=== PATIENT | female | born 1935 | race African-American/Black ===

== ENCOUNTER 2020-05-19 09:34 | Inpatient (IN) | payer MEDICARE, MEDICAID ==
[2020-05-19] MEDS ORDERED: cefTRIAXone\\ROCEPHIN 2 GM VIAL ONE (14:13)
[2020-05-19] MEDS ORDERED: Azithromycin 500 MG VIAL ONE (14:13)
[2020-05-19] MEDS ORDERED: Aspirin Chewable 81 MG TAB ONE (14:13)
[2020-05-19 14:14] LABS: SARS-CoV-2 NAA Rapid Test DETECTED (NotDetected)
[2020-05-19 15:47] LABS: Troponin I 0.043 ng/mL (< 0.028)
[2020-05-19] MEDS ORDERED: Senokot S 8.6-50 MG TAB PO PRN (17:28)
[2020-05-19] MEDS ORDERED: Bisacodyl 5 MG TAB PO PRN (17:28)
[2020-05-19 18:14] LABS: Troponin I 0.044 ng/mL (< 0.028)
[2020-05-19] MEDS ORDERED: hydrALAZINE 20 MG/ML VIAL SLOW IVP PRN (18:18)
--- NOTE | 2020-05-19 18:25 | PDOC.EVN ---
Event Note - Event Note Event Note: spoke with pt's daughter who is the POA who states that pt does not have dementia. Pt has had a poor appetite for the past week and this has worsen in the last few days. Pt lives another daughter where she could have been exposed. will start her on ppn. Pt at baseline is able to walk and do her ADL's. code status discussed she wants her mother to be full code.
[2020-05-19] MEDS: Amlodipine 10 MG TAB PO SCH (20:55)
[2020-05-19] MEDS: Enoxaparin Sodium 40 MG/0.4 ML SYRINGE SC SCH (20:55)
[2020-05-19] MEDS: D5W-AA 4.25% with LYTES 1,000 ML BAG IV SCH (21:25)
[2020-05-19 23:18] VITALS: BMI 16.1
--- NOTE | 2020-05-20 00:31 | HP ---
CHIEF COMPLAINT: Generalized weakness and no appetite. HISTORY OF PRESENT ILLNESS: The patient is an 85-year-old female with history of dementia who was sent initially to [facility] for evaluation for COVID rule out. All the information is from the records. The patient is unable to tell me any information. I called the family multiple times. The family has not returned the calls. The patient apparently was brought in for possible failure to thrive and also for pancytopenia that is what I was told. The patient was awake and alert only x1. ER also tried to call the daughter and granddaughter with no success. Unknown when was the last oral intake. The patient is unable to tell me, if she has had any diarrhea. However, she currently denies any pain. Currently denies any shortness of breath. She just states that she is sleepy. PAST MEDICAL HISTORY: She has hypertension, dementia. SURGICAL HISTORY: Unable to obtain. REVIEW OF SYSTEMS: The patient currently is unable to tell me anything specific. The patient is demented. ALLERGIES: PER RECORDS NO KNOWN DRUG ALLERGIES. MEDICATIONS: Unknown. PHYSICAL EXAMINATION: VITAL SIGNS: Temperature of 98.1, 20, 68, 161/75. GENERAL: She is awake, alert, and oriented x1. CV: S1, S2 present. No murmurs, rubs or gallops. LUNGS: Clear to auscultation. No rhonchi or wheezes noted. ABDOMEN: Soft, nontender. Bowel sounds are present x2. EXTREMITIES: No edema. Pedal pulses are present x2. NEUROVASCULAR: There are no focal deficits noted. HEENT: The patient appears cachectic with some temporal wasting. LABORATORY RESULTS: Troponin of 0.043. WBCs of 1.8, hemoglobin of 11.0, hematocrit of 37.6, platelets of 75, previous 197. Chemistry: Sodium of 138, potassium 3.4, BUN of 13, creatinine 0.69. Troponins initially was 0.041, then 0.029. TSH is 4.0. Urine not very impressive for possible UTI. Her COVID test was positive. She did have a chest x-ray done, which indicated hyperinflated with chronic interstitial changes. ASSESSMENT AND PLAN: 1. The patient is an 85-year-old female, who presents to the hospital for generalized weakness, failure to thrive. 2. Generalized weakness, most likely secondary to possible COVID. We will check inflammatory markers. 3. Pancytopenia. The patient's baseline WBCs previously have always been low at 3.6. This could be secondary most likely due to the viral exposure. It seems like patient was exposed to the grandson who was COVID positive. 4. Hypertension. We will start patient on some p.r.n. medications. 5. COVID positive. Her weakness could most likely be secondary to COVID positive and also her low appetite. Her sats are okay. She is 98% on room air. 6. Deep venous thrombosis prophylaxis. I will do SCDs or Lovenox, if her platelets are low. At this time, I do not think she needs any steroids and I do not think she needs any antibiotics. Job ID: [id number]
[2020-05-20 05:05] LABS: #Lymphocytes 0.4 thou/uL (1.20-3.40); #Monocytes 0.2 thou/uL (0.11-0.59); #Neutrophils 1.5 thou/uL (1.40-6.50); %Eosinophils 0.5 % (0.0-10.0); %Lymphocytes 17.8 % (21.0-51.0); %Monocytes 9.1 % (0.0-10.0); %Neutrophils 72.6 % (42.0-75.0); Mean Corpuscular HGB CONC 30.6 g/dL (32.0-36.0); Mean Corpuscular Hemoglobin 24.3 pg (27.0-31.0); Mean Corpuscular Volume 79.5 fL (78.0-98.0); Mean Platelet Volume 11.6 fL (7.4-10.4); Platelet Count 72 thou/uL (130-400); RBC Distribution Width 17.8 % (11.5-14.5); Red Blood Cell (RBC) Count 4.53 mill/uL (4.20-5.40); White Blood Cell (WBC) Count 2.1 thou/uL (4.8-10.8)
[2020-05-20 05:17] LABS: Anion Gap 11 mmol/L (10-20); BUN (Urea Nitrogen) 15 mg/dL (9.8-20.1); Calc. Creatinine Clearance 46 mL/min (70-130); Calcium 9.7 mg/dL (7.8-10.44); Carbon Dioxide 21 mmol/L (23-31); Chloride 108 mmol/L (98-107); Estimated GFR-MDRD Greater than 90; Glucose 101 mg/dL (83-110); Potassium 3.3 mmol/L (3.5-5.1); Sodium 137 mmol/L (136-145)
[2020-05-20] MEDS ORDERED: hydrALAZINE 20 MG/ML VIAL SLOW IVP PRN ×2 (08:11→10:56)
[2020-05-20] MEDS: Enoxaparin Sodium 40 MG/0.4 ML SYRINGE SC SCH ×4 (09:37→20:36)
[2020-05-20] MEDS: Lisinopril 20 MG TAB PO SCH (09:37)
[2020-05-20] MEDS: Acetaminophen 325 MG TAB PO PRN (09:42)
[2020-05-20] MEDS: D5W-AA 4.25% with LYTES 1,000 ML BAG IV SCH (17:31)
--- NOTE | 2020-05-20 18:36 | PDOC.HOSPP ---
- Subjective Encounter Date: 05/20/20 Encounter Time: 09:00 Subjective: no overnight events. This morning, feels well and has no complaints but appears to be confused, requesting to move the base of the bed to the side of the room. Later during the day, paroxysmal afib. Added coreg to lovenox - Objective Vital Signs & Weight: Vital Signs (12 hours) Temp Pulse Resp BP BP Pulse Ox 05/20/20 15:17 99.5 F 66 20 165/70 H 98 05/20/20 07:42 98.4 F 76 18 161/76 H 97 Weight Admit Weight 105 lb Weight 105 lb 14.4 oz I&O: 05/19/20 05/20/20 05/21/20 06:59 06:59 06:59 Intake Total 1295 Output Total 300 Balance 995 Result Diagrams: 05/20/20 04:43 05/20/20 04:43 Hospitalist ROS - Review of Systems Constitutional: denies: fever, chills Eyes: denies: vision change Respiratory: denies: cough, dry, shortness of breath Cardiovascular: denies: chest pain, palpitations, orthopnea, edema, light headedness Gastrointestinal: denies: nausea, vomiting, abdominal pain, diarrhea Genitourinary: denies: dysuria, frequency, hematuria - Medication Medications: Active Medications Generic Name Dose Route Start Last Admin Trade Name Freq PRN Reason Stop Dose Admin Acetaminophen 650 mg 05/19/20 17:28 05/20/20 09:42 Tylenol PO 650 mg Q4H PRN Administration Headache/Fever/Mild Pain (1-3) Amino Acids/Electrolytes/Dextrose 1,000 ml 05/19/20 18:30 05/20/20 17:31 Clinimix E 4.25/5 IV 1,000 ml INF JESSICA Administration Amlodipine Besylate 10 mg 05/19/20 21:00 05/19/20 20:55 Norvasc PO 10 mg HS JESSICA Administration Enoxaparin Sodium 40 mg 05/19/20 21:00 05/20/20 09:38 Lovenox SC Not Given BID JESSICA Lisinopril 20 mg 05/20/20 09:00 05/20/20 09:37 Zestril PO 20 mg DAILY JESSICA Administration - Exam General Appearance: NAD, awake alert ENT: normocephalic atraumatic Neck: no JVD Heart: RRR, no murmur, no gallops, no rubs Heart - other findings: in PM, telemetry showing afib, then returned to sinus Respiratory: CTAB, no wheezes, no rales, no ronchi Gastrointestinal: soft, non-tender, non-distended, normal bowel sounds Extremities: no edema Psychiatric: oriented to person, oriented to place. negative: oriented to time Hosp A/P - Plan #covid pneumonia -breathing and satting well on RA -supportive treatment #confusion -likely infectious delirium -treating underlying etiology -currently calm but if agitated can use low dose Haldol #p. afib -CHADSVASC 4 -started coreg; continue lovenox #HTN -restared home regimen; added coreg Full code GI PPx not indicated DVT PPx: therapeutic lovenox for afib
[2020-05-20] MEDS ORDERED: Electrolyte Replacement Protoc 1 EACH EACH FS SCH (18:45)
[2020-05-20] MEDS ORDERED: Potassium Chloride 20 MEQ TAB PO SCH (19:15)
[2020-05-20] MEDS ORDERED: Electrolyte Replacement Protocol FS PRN (19:15)
[2020-05-20] MEDS ORDERED: Carvedilol 6.25 MG TAB PO SCH (19:15)
[2020-05-20] MEDS: Amlodipine 10 MG TAB PO SCH (22:16)
[2020-05-21 05:53] LABS: Anion Gap 10 mmol/L (10-20); BUN (Urea Nitrogen) 20 mg/dL (9.8-20.1); Calc. Creatinine Clearance 45 mL/min (70-130); Calcium 10.1 mg/dL (7.8-10.44); Carbon Dioxide 23 mmol/L (23-31); Chloride 108 mmol/L (98-107); Estimated GFR-MDRD Greater than 90; Glucose 93 mg/dL (83-110); Potassium 4.1 mmol/L (3.5-5.1); Sodium 137 mmol/L (136-145)
[2020-05-21 06:37] LABS: #Lymphocytes 0.4 thou/uL (1.20-3.40); #Monocytes 0.2 thou/uL (0.11-0.59); #Neutrophils 1.6 thou/uL (1.40-6.50); %Eosinophils 0.4 % (0.0-10.0); %Monocytes 10.1 % (0.0-10.0); %Neutrophils 72.5 % (42.0-75.0); Anisocytosis SLIGHT = 6-15 cells (100X) (0-5/hpf); Hemoglobin 11.4 g/dL (12.0-16.0); Hypochromia SLIGHT = 6-15 cells (100X) (0-5/hpf); MDiff Complete? YES; Mean Corpuscular HGB CONC 29.4 g/dL (32.0-36.0); Mean Corpuscular Volume 81.6 fL (78.0-98.0); Mean Platelet Volume 14.7 fL (7.4-10.4); Platelet Count 69 thou/uL (130-400); Platelet Morphology Comment Appears Decreased; Poikilocytosis SLIGHT = 6-15 cells (100X) (0-5/hpf); RBC Distribution Width 18.3 % (11.5-14.5); Red Blood Cell (RBC) Count 4.77 mill/uL (4.20-5.40); White Blood Cell (WBC) Count 2.2 thou/uL (4.8-10.8)
[2020-05-21] MEDS: Carvedilol 6.25 MG TAB PO SCH ×2 (09:09→16:02)
[2020-05-21] MEDS: Enoxaparin Sodium 40 MG/0.4 ML SYRINGE SC SCH ×2 (09:09→20:25)
[2020-05-21] MEDS: Lisinopril 20 MG TAB PO SCH (09:10)
[2020-05-21] MEDS ORDERED: Potassium Chloride 20 MEQ TAB PO SCH (09:45)
[2020-05-21] MEDS: D5W-AA 4.25% with LYTES 1,000 ML BAG IV SCH (13:08)
--- NOTE | 2020-05-21 14:49 | PDOC.HOSPP ---
- Subjective Encounter Date: 05/21/20 Encounter Time: 08:00 Subjective: No overnight events. this morning, remains confused. Has no complaints but not cooperative. Attempted to obtain medical records. Will try again. - Objective Vital Signs & Weight: Vital Signs (12 hours) Temp Pulse Resp BP BP Pulse Ox 05/21/20 12:07 101.1 F H 67 19 157/68 H 97 05/21/20 09:15 98.1 F 75 16 160/76 H 95 Weight Admit Weight 105 lb Weight 105 lb 14.4 oz I&O: 05/20/20 05/21/20 05/22/20 06:59 06:59 06:59 Intake Total 1295 430 Output Total 300 850 Balance 995 -420 Result Diagrams: 05/21/20 05:19 05/21/20 05:19 Hospitalist ROS - Review of Systems ROS unobtainable: due to mental status (Denies pain but otherwise not cooperative with questiosn) - Medication Medications: Active Medications Generic Name Dose Route Start Last Admin Trade Name Freq PRN Reason Stop Dose Admin Acetaminophen 650 mg 05/19/20 17:28 05/20/20 09:42 Tylenol PO 650 mg Q4H PRN Administration Headache/Fever/Mild Pain (1-3) Amino Acids/Electrolytes/Dextrose 1,000 ml 05/19/20 18:30 05/21/20 13:08 Clinimix E 4.25/5 IV 1,000 ml INF JESSICA Administration Amlodipine Besylate 10 mg 05/19/20 21:00 05/20/20 22:16 Norvasc PO 10 mg HS JESSICA Administration Carvedilol 6.25 mg 05/21/20 08:00 05/21/20 09:09 Coreg PO 6.25 mg BID-WM JESSICA Administration Enoxaparin Sodium 40 mg 05/19/20 21:00 05/21/20 09:09 Lovenox SC 40 mg BID JESSICA Administration Lisinopril 20 mg 05/20/20 09:00 05/21/20 09:10 Zestril PO 20 mg DAILY JESSICA Administration - Exam General Appearance: NAD, awake alert Eye: PERRL, anicteric sclera Neck: no JVD Heart: RRR, no murmur, no gallops, no rubs Respiratory: CTAB, no wheezes, no rales, no ronchi Gastrointestinal: soft, non-tender, non-distended, normal bowel sounds Extremities: no edema Psychiatric - other findings: not cooperative Hosp A/P - Plan #covid pneumonia -breathing and satting well on RA -supportive treatment #confusion -likely infectious delirium -treating underlying etiology -currently calm but if agitated can use low dose Haldol #pancytopenia -likely due to COVID infection -4T score 2; low risk for HIT; Also, unlikely TTP but considering confusion and thrombocytopenia, will work up #p. afib -CHADSVASC 4 -started coreg; continue lovenox #HTN -restared home regimen; added coreg; will continue to monitor Full code GI PPx not indicated DVT PPx: therapeutic lovenox for afib
[2020-05-21 15:38] LABS: Bilirubin, Direct 0.4 mg/dL (0.1-0.3); Bilirubin, Total 0.6 mg/dL (0.2-1.2)
[2020-05-21 15:41] LABS: Anisocytosis SLIGHT = 6-15 cells (100X) (0-5/hpf); Band 18 % (5-11); Hemoglobin 11.4 g/dL (12.0-16.0); Hypochromia SLIGHT = 6-15 cells (100X) (0-5/hpf); Lymphocytes 11 % (21-51); MDiff Complete? YES; Mean Corpuscular HGB CONC 30.5 g/dL (32.0-36.0); Mean Corpuscular Hemoglobin 24.5 pg (27.0-31.0); Mean Corpuscular Volume 80.4 fL (78.0-98.0); Mean Platelet Volume 9.5 fL (7.4-10.4); Monocytes 10 % (0-10); Neutrophil 54 % (42-75); Platelet Count 70 thou/uL (130-400); Platelet Morphology Comment Appears Decreased; Polychromasia SLIGHT = 2-3 cells (100X) (0-2/hpf); RBC Distribution Width 17.9 % (11.5-14.5); Reactive Lymphocytes 7 % (0-10); Red Blood Cell (RBC) Count 4.65 mill/uL (4.20-5.40); Schistocytes SLIGHT = 2-5 cells (100X) (0-1/hpf); Target Cells SLIGHT = 2-5 cells (100X) (0-1/hpf); Tear Drops SLIGHT = 2-5 cells (100X) (0-1/hpf); White Blood Cell (WBC) Count 2.2 thou/uL (4.8-10.8)
[2020-05-21] MEDS: Acetaminophen 325 MG TAB PO PRN ×2 (16:17→20:44)
[2020-05-21] MEDS: Amlodipine 10 MG TAB PO SCH ×2 (20:34→20:57)
--- NOTE | 2020-05-21 20:39 | RAD ---
EXAM: 2 views of the left hip HISTORY: Left hip pain after fall one week ago COMPARISON: None FINDINGS: 2 views of the left hip shows no evidence of acute fracture or dislocation. No degenerative changes are seen in the hip. No soft tissue swelling is present. Degenerative changes are seen in the lumbar spine. IMPRESSION: No evidence of acute osseous abnormality.
[2020-05-21] MEDS ORDERED: Ketorolac Tromethamine 30 MG/ML VIAL IVP SCH (21:15)
[2020-05-22] MEDS: D5W-AA 4.25% with LYTES 1,000 ML BAG IV SCH ×2 (02:56→16:28)
[2020-05-22] MEDS: Enoxaparin Sodium 40 MG/0.4 ML SYRINGE SC SCH ×2 (08:55→22:39)
[2020-05-22] MEDS: Carvedilol 6.25 MG TAB PO SCH ×2 (08:55→18:46)
[2020-05-22] MEDS: Lisinopril 20 MG TAB PO SCH (08:56)
[2020-05-22 12:09] LABS: CRP (Inflammatory) 3.36 mg/dL (= or < 0.5); Iron 16 ug/dL (50-170); Iron Binding Capacity, Total 229 mcg/dL (265-497)
--- NOTE | 2020-05-22 15:23 | PDOC.HOSPP ---
- Subjective Encounter Date: 05/22/20 Encounter Time: 09:00 Subjective: no overnight events. remains confused but breathing and satting well on room air. Inflammatory markers grossly elevated. attempted to call family to establish baseline - Objective Vital Signs & Weight: Vital Signs (12 hours) Temp Pulse Resp BP BP BP Pulse Ox 05/22/20 12:30 98.1 F 88 22 H 144/87 H 95 05/22/20 08:56 146/65 H 05/22/20 08:55 146/65 H 05/22/20 08:45 98.8 F 84 20 171/86 H 96 05/22/20 03:51 97.9 F 50 L 18 164/69 H 95 Weight Admit Weight 105 lb Weight 105 lb 14.4 oz I&O: 05/21/20 05/22/20 05/23/20 06:59 06:59 06:59 Intake Total 430 1766 Output Total 850 650 Balance -420 1116 Result Diagrams: 05/21/20 15:09 05/21/20 05:19 Hospitalist ROS - Review of Systems ROS unobtainable: due to mental status - Medication Medications: Active Medications Generic Name Dose Route Start Last Admin Trade Name Freq PRN Reason Stop Dose Admin Acetaminophen 650 mg 05/19/20 17:28 05/21/20 16:17 Tylenol PO 650 mg Q4H PRN Administration Headache/Fever/Mild Pain (1-3) Amino Acids/Electrolytes/Dextrose 1,000 ml 05/19/20 18:30 05/22/20 02:56 Clinimix E 4.25/5 IV 1,000 ml INF JESSICA Administration Amlodipine Besylate 10 mg 05/19/20 21:00 05/21/20 20:57 Norvasc PO Not Given HS JESSICA Enoxaparin Sodium 40 mg 05/19/20 21:00 05/22/20 08:55 Lovenox SC Not Given BID JESSICA - Exam General Appearance: NAD General - other findings: confused but follows commands Eye: PERRL, anicteric sclera ENT: normocephalic atraumatic, moist mucosa Neck: no JVD Heart: RRR, no murmur, no gallops, no rubs Respiratory: CTAB, no wheezes, no rales, no ronchi Gastrointestinal: soft, non-tender, non-distended, normal bowel sounds Extremities: no edema Psychiatric: normal affect, normal behavior, A&O x 3 Hosp A/P - Plan #covid pneumonia -breathing and satting well on RA -supportive treatment #confusion -likely infectious delirium -treating underlying etiology -currently calm but if agitated can use low dose Haldol #pancytopenia -likely due to COVID infection -4T score 2; low risk for HIT; Also, unlikely TTP but considering confusion and thrombocytopenia, will work up #p. afib -CHADSVASC 4 -started coreg; continue lovenox #HTN -restared home regimen; added coreg; will continue to monitor Full code GI PPx not indicated DVT PPx: therapeutic lovenox for afib
--- NOTE | 2020-05-22 18:12 | PDOC.EVN ---
Event Note - Event Note Event Note: spoke with family and per family, patient has been confused and talking to herself for years and this is her baseline mental state. ELOS 1-2 nights
[2020-05-22] MEDS ORDERED: Labetalol HCl 100 MG/20 ML VIAL SLOW IVP PRN (19:28)
[2020-05-22] MEDS ORDERED: hydrALAZINE 20 MG/ML VIAL SLOW IVP PRN (20:02)
--- NOTE | 2020-05-22 20:02 | PDOC.EVN ---
Event Note - Event Note Event Note: Lovenox was held on 05/[address] nurse, Jose Elias Arrieta, came to shift and was "worried" about using lovenox. I called the nurse after my call was over at around 8pm to request the contraindication to lovenox, which she could not provide, and requested that order is carried through. This was also conveyed to charge nurse at the time. After our discussion over the phone ended , the same nurse called the physician preparation department supervisor to hold lovenox, and the physician who was likely unaware of her previous conversation with me, complied. Of note, I called the floor at 21:13 to discuss the incident with the charge nurse, who did mention that the nurse thought I was rude but did not mention that lovenox was eventually held. This incident was reported in [facility] as well.
[2020-05-22] MEDS: Amlodipine 10 MG TAB PO SCH (22:39)
[2020-05-23] MEDS: D5W-AA 4.25% with LYTES 1,000 ML BAG IV SCH (05:16)
[2020-05-23 05:29] LABS: Anion Gap 10 mmol/L (10-20); BUN (Urea Nitrogen) 32 mg/dL (9.8-20.1); Calc. Creatinine Clearance 41 mL/min (70-130); Calcium 10.2 mg/dL (7.8-10.44); Carbon Dioxide 21 mmol/L (23-31); Chloride 109 mmol/L (98-107); Estimated GFR-MDRD 90; Glucose 116 mg/dL (83-110); Magnesium 2.1 mg/dL (1.6-2.6); Potassium 4.3 mmol/L (3.5-5.1); Sodium 136 mmol/L (136-145)
[2020-05-23 06:00] LABS: #Lymphocytes 0.4 thou/uL (1.20-3.40); #Monocytes 0.3 thou/uL (0.11-0.59); #Neutrophils 2.2 thou/uL (1.40-6.50); %Eosinophils 0.2 % (0.0-10.0); %Lymphocytes 13.2 % (21.0-51.0); %Monocytes 10.5 % (0.0-10.0); %Neutrophils 76.1 % (42.0-75.0); Anisocytosis SLIGHT = 6-15 cells (100X) (0-5/hpf); Elliptocytes SLIGHT = 2-5 cells (100X) (0-1/hpf); Hemoglobin 10.6 g/dL (12.0-16.0); Hypochromia SLIGHT = 6-15 cells (100X) (0-5/hpf); Large Platelets SLIGHT; MDiff Complete? YES; Mean Corpuscular HGB CONC 30.2 g/dL (32.0-36.0); Mean Corpuscular Hemoglobin 23.9 pg (27.0-31.0); Mean Corpuscular Volume 79.2 fL (78.0-98.0); Platelet Count 77 thou/uL (130-400); Platelet Morphology Comment Appears Decreased; Poikilocytosis SLIGHT = 6-15 cells (100X) (0-5/hpf); Polychromasia SLIGHT = 2-3 cells (100X) (0-2/hpf); RBC Distribution Width 17.9 % (11.5-14.5); Red Blood Cell (RBC) Count 4.43 mill/uL (4.20-5.40); Schistocytes SLIGHT = 2-5 cells (100X) (0-1/hpf); White Blood Cell (WBC) Count 2.9 thou/uL (4.8-10.8)
[2020-05-23] MEDS: Enoxaparin Sodium 40 MG/0.4 ML SYRINGE SC SCH ×2 (09:23→20:52)
[2020-05-23] MEDS: Carvedilol 6.25 MG TAB PO SCH ×2 (09:23→19:22)
[2020-05-23] MEDS: Lisinopril 20 MG TAB PO SCH (09:24)
[2020-05-23] MEDS ORDERED: Dextrose 5 % And 0.9 % NaCl 1,000 ML IV SCH (10:00)
[2020-05-23] MEDS ORDERED: D5W-AA 4.25% with LYTES 1,000 ML IV SCH (13:15)
--- NOTE | 2020-05-23 17:40 | PDOC.HOSPP ---
- Subjective Encounter Date: 05/23/20 Encounter Time: 10:00 Subjective: no overnight events. Continues to be confused and talking to herself but per daughter, that is her baseline. Spoke with daughter and even though MPOA is still being addressed, daughter requests that patient be sent to [facility]. - Objective Vital Signs & Weight: Vital Signs (12 hours) Temp Pulse Resp BP Pulse Ox 05/23/20 12:00 98.8 F 71 20 144/67 H 93 L 05/23/20 08:00 99.2 F 87 20 175/75 H 94 L Weight Admit Weight 105 lb Weight 105 lb 14.4 oz I&O: 05/22/20 05/23/20 05/24/20 06:59 06:59 06:59 Intake Total 1766 523 120 Output Total 650 200 Balance 1116 323 120 Result Diagrams: 05/23/20 04:44 05/23/20 04:44 Hospitalist ROS - Review of Systems ROS unobtainable: due to mental status - Medication Medications: Active Medications Generic Name Dose Route Start Last Admin Trade Name Freq PRN Reason Stop Dose Admin Acetaminophen 650 mg 05/19/20 17:28 05/21/20 16:17 Tylenol PO 650 mg Q4H PRN Administration Headache/Fever/Mild Pain (1-3) Amlodipine Besylate 10 mg 05/19/20 21:00 05/22/20 22:39 Norvasc PO 10 mg HS JESSICA Administration Carvedilol 12.5 mg 05/22/20 17:00 05/23/20 09:23 Coreg PO 12.5 mg BID-WM JESSICA Administration Enoxaparin Sodium 40 mg 05/22/20 21:00 05/23/20 09:23 Lovenox SC 40 mg BID JESSICA Administration Lisinopril 20 mg 05/23/20 09:00 05/23/20 09:24 Zestril PO 20 mg DAILY JESSICA Administration - Exam General Appearance: NAD, awake alert Neck: no JVD Heart: RRR, no murmur, no gallops, no rubs Respiratory: CTAB, no wheezes, no rales, no ronchi Gastrointestinal: soft, non-tender, non-distended Extremities: no edema Psychiatric - other findings: confused, talking to self Hosp A/P - Plan #covid pneumonia -breathing and satting well on RA -supportive treatment #confusion -per daughter, patient confused and talks to self at baseline -has CT head (2012) consistent with dementia imaging finding -can use low dose haldol IV for agitation #p. afib -CHADSVASC 4 -continue coreg; continue lovenox #HTN -continue regimen Full code GI PPx not indicated DVT PPx: therapeutic lovenox for afib
[2020-05-23] MEDS: Amlodipine 10 MG TAB PO SCH (20:52)
[2020-05-23] MEDS: Acetaminophen 325 MG TAB PO PRN (20:52)
[2020-05-24] MEDS ORDERED: traMADol HCl 50 MG TAB PO SCH (00:30)
[2020-05-24] MEDS ORDERED: Melatonin 3 MG TAB PO PRN (00:31)
[2020-05-24] MEDS: Enoxaparin Sodium 40 MG/0.4 ML SYRINGE SC SCH ×2 (10:11→22:02)
[2020-05-24] MEDS: Lisinopril 20 MG TAB PO SCH (10:11)
[2020-05-24] MEDS: Carvedilol 6.25 MG TAB PO SCH ×2 (10:12→18:28)
[2020-05-24] MEDS: AA 4.25 %/CALCIUM/LYTES/D5W 2,000 ML IV SCH (14:01)
[2020-05-24] MEDS: Acetaminophen 325 MG TAB PO PRN ×2 (14:02→22:02)
[2020-05-24] MEDS ORDERED: Haloperidol Lactate 5 MG/ML VIAL SLOW IVP PRN (14:10)
--- NOTE | 2020-05-24 14:13 | PDOC.HOSPP ---
- Subjective Encounter Date: 05/24/20 Encounter Time: 08:00 Subjective: no overnight events. this morning, remains confused and agitated when entering the room or attempting to examine. - Objective Vital Signs & Weight: Vital Signs (12 hours) Temp Pulse Resp BP BP Pulse Ox 05/24/20 10:25 94 L 05/24/20 10:20 97.1 F L 54 L 18 133/64 94 L 05/24/20 03:11 97.1 F L 50 L 24 H 158/71 H 96 Weight Admit Weight 105 lb Weight 105 lb 14.4 oz I&O: 05/23/20 05/24/20 05/25/20 06:59 06:59 06:59 Intake Total 523 879 120 Output Total 200 600 Balance 323 279 120 Result Diagrams: 05/23/20 04:44 05/23/20 04:44 Hospitalist ROS - Review of Systems ROS unobtainable: due to mental status - Medication Medications: Active Medications Generic Name Dose Route Start Last Admin Trade Name Freq PRN Reason Stop Dose Admin Acetaminophen 650 mg 05/19/20 17:28 05/24/20 14:02 Tylenol PO 650 mg Q4H PRN Administration Headache/Fever/Mild Pain (1-3) Amlodipine Besylate 10 mg 05/19/20 21:00 05/23/20 20:52 Norvasc PO 10 mg HS JESSICA Administration Carvedilol 12.5 mg 05/22/20 17:00 05/24/20 10:12 Coreg PO 12.5 mg BID-WM JESSICA Administration Enoxaparin Sodium 40 mg 05/22/20 21:00 05/24/20 10:11 Lovenox SC 40 mg BID JESSICA Administration AA 4.25 %/CALCIUM/LYTES/D5W 2,000 mls @ 83 mls/hr 05/24/20 13:15 05/24/20 14: 01 Clinimix E 4.25%-5% Solution IV 2,000 mls INF JESSICA Administration Lisinopril 20 mg 05/23/20 09:00 05/24/20 10:11 Zestril PO 20 mg DAILY JESSICA Administration - Exam General Appearance: NAD General - other findings: infetal position; becomes agitated when asking her question or examining Respiratory: CTAB, no wheezes, no rales, no ronchi Extremities: no edema Hosp A/P - Plan #covid pneumonia -breathing and satting well on RA -pending process of MPOA then placement -supportive treatment #confusion -per daughter, patient confused and talks to self at baseline -has CT head (2012) consistent with dementia imaging findings -can use low dose haldol IV for agitation #p. afib -CHADSVASC 4 -continue coreg; continue lovenox #HTN -continue regimen #bradycardia -has been reported in covid cases -reduced coreg Full code GI PPx not indicated DVT PPx: therapeutic lovenox for afib Disposition: pending MPOA, as of now plan is [facility].
[2020-05-24] MEDS ORDERED: Sodium Chloride 0.9% 500 ML IV SCH (15:45)
[2020-05-24] MEDS ORDERED: Donepezil HCl 5 MG TAB PO SCH (21:00)
[2020-05-24] MEDS: Amlodipine 10 MG TAB PO SCH (23:11)
[2020-05-25] MEDS: Acetaminophen 650 MG Suppository PR PRN ×2 (02:13→08:52)
[2020-05-25 05:00] LABS: Anion Gap 10 mmol/L (10-20); BUN (Urea Nitrogen) 64 mg/dL (9.8-20.1); CRP (Inflammatory) 4.71 mg/dL (= or < 0.5); Calc. Creatinine Clearance 38 mL/min (70-130); Calcium 10.1 mg/dL (7.8-10.44); Carbon Dioxide 20 mmol/L (23-31); Chloride 112 mmol/L (98-107); Estimated GFR-MDRD 81; Glucose 101 mg/dL (83-110); Magnesium 2.4 mg/dL (1.6-2.6); Potassium 4.8 mmol/L (3.5-5.1); Sodium 137 mmol/L (136-145)
[2020-05-25 06:04] LABS: Anisocytosis MODERATE=16-30 cells (100X) (0-5/hpf); Band 3 % (5-11); Hemoglobin 9.5 g/dL (12.0-16.0); Lymphocytes 6 % (21-51); MDiff Complete? YES; Mean Corpuscular HGB CONC 31.3 g/dL (32.0-36.0); Mean Corpuscular Hemoglobin 25.2 pg (27.0-31.0); Mean Corpuscular Volume 80.7 fL (78.0-98.0); Mean Platelet Volume 15.9 fL (7.4-10.4); Monocytes 11 % (0-10); Neutrophil 80 % (42-75); Platelet Count 68 thou/uL (130-400); Platelet Morphology Comment Appears Decreased; RBC Distribution Width 17.9 % (11.5-14.5); Red Blood Cell (RBC) Count 3.77 mill/uL (4.20-5.40); Schistocytes SLIGHT = 2-5 cells (100X) (0-1/hpf)
[2020-05-25] MEDS: Enoxaparin Sodium 40 MG/0.4 ML SYRINGE SC SCH (08:51)
[2020-05-25] MEDS: Carvedilol 6.25 MG TAB PO SCH ×2 (08:51→09:40)
[2020-05-25] MEDS: Lisinopril 20 MG TAB PO SCH (08:51)
[2020-05-25] MEDS: AA 4.25 %/CALCIUM/LYTES/D5W 2,000 ML IV SCH (11:45)
[2020-05-25] MEDS: Acetaminophen 325 MG TAB PO PRN (13:15)
[2020-05-25 15:28] VITALS: BP 125/56; TEMP 99.5
--- NOTE | 2020-05-25 21:43 | DIS ---
DATE OF ADMISSION: 05/19/2020 DATE OF DISCHARGE: 05/25/2020 HOSPITAL COURSE: Ms. Armstrong is an 85-year-old female with a medical history of hypertension and dementia, who presented with generalized weakness and reduced appetite. She was diagnosed with COVID pneumonia. She felt well on room air throughout her inpatient stay. During her inpatient stay, she developed paroxysmal atrial fibrillation and considering her CHADS-VASc score was 4, she was started on Lovenox. The patient was discharged to [facility] after 2 out of her 3 children agreed, considering she does not have an MPOA. Prior to discharge, the patient was started on donepezil and the [facility] staff was noted that it was just started and that continuation is based on the prior knowledge of the patient and determining if the medication is aiding with her dementia. PHYSICAL EXAMINATION: VITAL SIGNS: Blood pressure 125/56, pulse 65, respiratory rate 22, oxygen saturation 94% on room air, and temperature 99.5. GENERAL: Lying comfortably in bed, is in no distress, talking to herself in sit up position. HEENT: Normocephalic and atraumatic. CARDIAC: Regular rate and rhythm. No murmurs, gallops, or rubs. LUNGS: Clear to auscultation bilaterally. No wheezing, rales, or rhonchi. ABDOMEN: Soft, nontender, and nondistended. Normal bowel sounds. PSYCHIATRIC: Awake and alert, but oriented x0. Does not attempt to follow commands by squeezing the finger, squeezes occasionally when requested to follow a command or when examined. MEDICATION LIST: New medications: 1. . 2. Clinimix 4.25%/5% solution 83 mL/h. Of note, the patient's p.o. intake improved on the day of discharge and she had 20% of her oral meal. 3. Coreg. 4. Donepezil 5 mg p.o. at bedtime. 5. Lovenox 40 mg subcu b.i.d. for paroxysmal atrial fibrillation and COVID pneumonia. 6. Senna/docusate p.r.n. constipation. Continued medications, amlodipine 10 mg at bedtime. Discontinued medications, lisinopril 20 mg p.o. daily due to borderline hypotension during her inpatient stay. Job ID: [id number]
== END 2020-05-25 15:20 | disposition swing bed (61) | DRG 177 ==
LOC: ERS 09:34 → 2SW 14:30
PROVIDERS: ADMIT Internal Medicine; ATTEND Internal Medicine
PROC: 8E0ZXY6 Isolation (ICD-10-PCS; principal; 2020-05-19)
DX: U07.1 COVID-19 (principal); J12.89 Other viral pneumonia; D61.818 Other pancytopenia; Z68.1 Body mass index [BMI] 19.9 or less, adult; I48.0 Paroxysmal atrial fibrillation; I10 Essential (primary) hypertension; F03.90 Unspecified dementia, unspecified severity, without behavioral disturbance, psychotic disturbance, mood disturbance, and anxiety; R62.7 Adult failure to thrive; R41.0 Disorientation, unspecified; Z79.899 Other long term (current) drug therapy
CPT/HCPCS: 36415; 36600; 80048; 80053; 82247; 82248; 82728; 83010; 83540; 83550; 83735; 84100; 84466; 85025; 85060; 85379; 86140; 87040; 93005; 96365; 96367; J0456; J0696; J1650; J1885; U0002

== ENCOUNTER 2023-06-25 02:29 | Emergency (ER) | payer MEDICARE, OTHER ==
[2023-06-25 03:18] LABS: #Eosinphils 0.2 thou/uL (0.0-0.7); #Monocytes 0.7 thou/uL (0.11-0.59); #Neutrophils 2.3 thou/uL (1.40-6.50); %Basophils 0.5 % (0.0-1.0); %Eosinophils 4.8 % (0.0-10.0); %Lymphocytes 19.7 % (21.0-51.0); %Monocytes 17.2 % (0.0-10.0); %Neutrophils 57.5 % (42.0-75.0); Hematocrit 29.2 % (36.0-47.0); Hemoglobin 9.1 g/dL (12.0-16.0); Mean Corpuscular HGB CONC 31.2 g/dL (32.0-36.0); Mean Corpuscular Hemoglobin 25.1 pg (27.0-31.0); Mean Corpuscular Volume 80.7 fl (78.0-98.0); Mean Platelet Volume 10.1 fL (7.4-10.4); Platelet Count 217 10x3/uL (130-400); RBC Distribution Width 16.8 % (11.5-14.5); Red Blood Cell (RBC) Count 3.62 mill/uL (4.20-5.40)
[2023-06-25 03:42] LABS: SARS-CoV-2 NAA Rapid Test Not Detected (NotDetected)
[2023-06-25 03:45] LABS: ALT (SGPT) 8 U/L (8-55); AST (SGOT) 15 U/L (5-34); Albumin 2.9 g/dL (3.4-4.8); Alkaline Phosphatase 60 U/L (40-110); Anion Gap 9 mmol/L (10-20); BUN (Urea Nitrogen) 12 mg/dL (9.8-20.1); Bilirubin, Total 0.3 mg/dL (0.2-1.2); Calc. Creatinine Clearance 0 mL/min (70-130); Calcium 10.7 mg/dL (7.8-10.44); Carbon Dioxide 25 mmol/L (23-31); Chloride 107 mmol/L (98-107); Estimated GFR 76; Globulin 4.4 g/dL (2.4-3.5); Glucose 89 mg/dL (83-110); Potassium 3.3 mmol/L (3.5-5.1); Protein, Total 7.3 g/dL (5.8-8.1); Sodium 138 mmol/L (136-145)
[2023-06-25 05:09] LABS: Bacteria/HPF 1+ HPF (None Seen); Bilirubin Negative (Negative); Blood, Urine Negative (Negative); CAUTI Indications for Culture Fever or rigors; Clarity Clear (Clear); Glucose, Urine (Dipstick) Normal (Negative); Ketone, Urine Negative (Negative); Leukocyte Negative Leu/uL (Negative); Nitrite Negative (Negative); Protein, Urine (Dipstick) Negative (Neg-Trace); RBC/HPF None Seen HPF (0-3); Specific Gravity, Urine 1.006 (1.002-1.036); Squamous Epithelial 0-3 HPF (0-3); Urobilinogen Normal mg/dL (Less than 2); WBC/HPF 0-3 HPF (0-3)
[2023-06-25 05:10] LABS: Urine Culture Reflex No No
== END 2023-06-25 05:38 | disposition home or self-care (01) ==
LOC: ERS 02:29
DX: R42 Dizziness and giddiness (principal); I10 Essential (primary) hypertension; Z20.822 Contact with and (suspected) exposure to COVID-19
CPT/HCPCS: 0240U; 71045; 80053; 81001; 85025; 87086; 36415

== ENCOUNTER 2023-10-19 05:13 | Emergency (ER) | payer MEDICARE, MEDICAID ==
[2023-10-19] MEDS ORDERED: Acetaminophen 500 MG TAB ONE (06:15)
[2023-10-19 06:33] LABS: Bacteria/HPF None Seen HPF (None Seen); Bilirubin Negative (Negative); Blood, Urine Negative (Negative); CAUTI Indications for Culture Dysuria,urgency,freq; Clarity Clear (Clear); Glucose, Urine (Dipstick) Normal (Negative); Ketone, Urine Negative (Negative); Leukocyte Negative Leu/uL (Negative); Nitrite Negative (Negative); Protein, Urine (Dipstick) Negative (Neg-Trace); RBC/HPF 0-3 HPF (0-3); Specific Gravity, Urine 1.009 (1.002-1.036); Squamous Epithelial 0-3 HPF (0-3); WBC/HPF 0-3 HPF (0-3); pH, Urine 6.5 (5.0-9.0)
[2023-10-19 06:35] LABS: Urine Culture Reflex No No
[2023-10-19 06:55] LABS: #Eosinphils 0.2 thou/uL (0.0-0.7); #Monocytes 0.6 thou/uL (0.11-0.59); #Neutrophils 2.7 thou/uL (1.40-6.50); %Basophils 0.2 % (0.0-1.0); %Eosinophils 5.6 % (0.0-10.0); %Lymphocytes 15.7 % (21.0-51.0); %Monocytes 14.1 % (0.0-10.0); %Neutrophils 64.2 % (42.0-75.0); Hematocrit 32.2 % (36.0-47.0); Hemoglobin 9.8 g/dL (12.0-16.0); Mean Corpuscular HGB CONC 30.4 g/dL (32.0-36.0); Mean Corpuscular Hemoglobin 25.3 pg (27.0-31.0); Mean Platelet Volume 12.2 fL (7.4-10.4); Platelet Count 170 10x3/uL (130-400); RBC Distribution Width 16.6 % (11.5-14.5); Red Blood Cell (RBC) Count 3.88 mill/uL (4.20-5.40); White Blood Cell (WBC) Count 4.3 10x3/uL (4.8-10.8)
[2023-10-19 07:10] LABS: ALT (SGPT) 7 U/L (8-55); AST (SGOT) 16 U/L (5-34); Albumin 2.9 g/dL (3.4-4.8); Alkaline Phosphatase 66 U/L (40-110); Anion Gap 8 mmol/L (10-20); BUN (Urea Nitrogen) 10 mg/dL (9.8-20.1); Bilirubin, Total 0.4 mg/dL (0.2-1.2); Calc. Creatinine Clearance 0 mL/min (70-130); Calcium 10.2 mg/dL (7.8-10.44); Carbon Dioxide 27 mmol/L (23-31); Chloride 108 mmol/L (98-107); Estimated GFR 81; Globulin 4.6 g/dL (2.4-3.5); Glucose 80 mg/dL (83-110); Magnesium 1.8 mg/dL (1.6-2.6); Potassium 3.3 mmol/L (3.5-5.1); Protein, Total 7.5 g/dL (5.8-8.1); Sodium 140 mmol/L (136-145)
[2023-10-19 07:14] LABS: Troponin I 0.018 ng/mL (< 0.028)
== END 2023-10-19 09:33 | disposition home or self-care (01) ==
LOC: ERS 05:13
DX: R30.0 Dysuria (principal); R10.9 Unspecified abdominal pain; I10 Essential (primary) hypertension; Z79.899 Other long term (current) drug therapy
CPT/HCPCS: 36415; 71045; 74176; 81001; 83735; 84484; 85025; 93005

== ENCOUNTER 2023-12-11 00:32 | Emergency (ER) | payer MEDICARE, MEDICAID ==
[2023-12-11 01:27] LABS: #Eosinphils 0.2 thou/uL (0.0-0.7); #Monocytes 0.7 thou/uL (0.11-0.59); #Neutrophils 2.5 thou/uL (1.40-6.50); %Basophils 0.5 % (0.0-1.0); %Eosinophils 4.1 % (0.0-10.0); %Lymphocytes 19.5 % (21.0-51.0); %Monocytes 16.6 % (0.0-10.0); %Neutrophils 58.8 % (42.0-75.0); Hematocrit 31.9 % (36.0-47.0); Hemoglobin 9.6 g/dL (12.0-16.0); Mean Corpuscular HGB CONC 30.1 g/dL (32.0-36.0); Mean Corpuscular Hemoglobin 25.4 pg (27.0-31.0); Mean Corpuscular Volume 84.4 fl (78.0-98.0); Mean Platelet Volume 12.6 fL (7.4-10.4); Platelet Count 204 10x3/uL (130-400); RBC Distribution Width 16.7 % (11.5-14.5); Red Blood Cell (RBC) Count 3.78 mill/uL (4.20-5.40); White Blood Cell (WBC) Count 4.2 10x3/uL (4.8-10.8)
[2023-12-11 01:58] LABS: ALT (SGPT) 9 U/L (8-55); AST (SGOT) 21 U/L (5-34); Albumin 3.1 g/dL (3.4-4.8); Alkaline Phosphatase 69 U/L (40-110); Anion Gap 7 mmol/L (10-20); BUN (Urea Nitrogen) 14 mg/dL (9.8-20.1); Bilirubin, Total 0.5 mg/dL (0.2-1.2); Calc. Creatinine Clearance 0 mL/min (70-130); Calcium 10.7 mg/dL (7.8-10.44); Carbon Dioxide 28 mmol/L (23-31); Chloride 109 mmol/L (98-107); Estimated GFR 74; Globulin 4.6 g/dL (2.4-3.5); Glucose 89 mg/dL (83-110); Potassium 3.4 mmol/L (3.5-5.1); Protein, Total 7.7 g/dL (5.8-8.1); Sodium 141 mmol/L (136-145)
[2023-12-11 03:15] LABS: SARS-CoV-2 NAA Rapid Test Not Detected (NotDetected)
[2023-12-11 04:05] LABS: Troponin I 0.021 ng/mL (< 0.028)
== END 2023-12-11 03:37 | disposition home or self-care (01) ==
LOC: ERS 00:32
DX: B34.9 Viral infection, unspecified (principal); I10 Essential (primary) hypertension
CPT/HCPCS: 0240U; 71045; 80053; 83880; 84484; 85025; 93005; 36415